=== PATIENT | female | born 1940 | race Two or more races ===

== ENCOUNTER 2020-02-26 07:55 | Day surgery (SDC) | payer OTHER ==
[~2020-02-26 07:55] MED LIST: ATORVASTATIN CA20 MG PO; LEVO-T25 MCG PO; LOSARTAN-HCTZ1 EACH PO
[2020-02-26] MEDS ORDERED: PERCOCET 5-3251 EACH PO (12:09)
== END 2020-02-26 16:00 | disposition home or self-care (01) ==
LOC: CIR.AMB 07:55
PROVIDERS: ATTEND Surgery
DX: E21.0 Primary hyperparathyroidism (principal); Z20.828 Contact with and (suspected) exposure to other viral communicable diseases